=== PATIENT | male | born 1970 | race Caucasian/White ===

== ENCOUNTER 2017-05-11 19:34 | Emergency (ER) | payer SELFPAY ==
[~2017-05-11] VITALS: Ht 177.8 cm; Wt 108.0 kg
[~2017-05-11 19:34] MED LIST: CYMBALTA PO; LORTAB 101 TAB 10/5 PO; NO MEDICATIONS
== END 2017-05-11 21:00 | disposition left against medical advice (07) ==
LOC: CED 19:34
DX: Z53.21 Procedure and treatment not carried out due to patient leaving prior to being seen by health care provider (principal)